=== PATIENT | female | born 1995 | race Caucasian/White ===

== ENCOUNTER 2019-02-01 21:17 | Emergency (ER) | payer MEDICAID ==
[~2019-02-01] VITALS: Ht 154.9 cm; Wt 55.0 kg
--- NOTE | 2019-02-01 23:52 | NUR ---
ASSISTED DR PRO WITH PELVIC EXAM. PT TOLERATED WELL SMALLL SPECTULUM USEED. SMALL AMOUNT OF WHITE DISCHARGE NOTED SPECIMAN SENT TO LAB
[2019-02-02 01:29] VITALS: BP 109/54
== END 2019-02-02 01:24 | disposition home or self-care (01) ==
LOC: ER 21:18
DX: O26.892 Other specified pregnancy related conditions, second trimester (principal); O99.332 Smoking (tobacco) complicating pregnancy, second trimester; N89.8 Other specified noninflammatory disorders of vagina; R10.2 Pelvic and perineal pain; F17.200 Nicotine dependence, unspecified, uncomplicated; Z3A.16 16 weeks gestation of pregnancy; Z88.0 Allergy status to penicillin
CPT/HCPCS: 36415; 84702; 87210; 99283